=== PATIENT | female | born 1945 | race Caucasian/White ===

== ENCOUNTER 2023-01-04 08:58 | Day surgery (SDC) | payer MEDICARE, OTHER, SELFPAY ==
[2023-01-04] MEDS: TETRACAINE 0.5% OPHTH 1 DROP EYE-LEFT ×2 (09:00→09:05)
[2023-01-04] MEDS: KETOROLAC OPHTH 0.5% 1 DROP EYE-LEFT ×2 (09:00→09:05)
[2023-01-04 09:13] VITALS: BP 136/72; PULSE 74; RESP 18; TEMP 36.6; O2SAT 96
[2023-01-04 09:18] VITALS: BMI 23.3
[2023-01-04] MEDS: SODIUM CHLORIDE 0.9 % (FLUSH) 10 ML SYRINGE IVF (09:31)
--- NOTE | 2023-01-04 09:33 | SUR.PREOP ---
The eye drops brought by the patient (Ketorolac and Prednisolone) are examined and I have determined they are labeled by the patient's pharmacy for this patient as prescribed by the surgeon. The bottles are intact, recently obtained and appear to be correct.left eye volkertr
[2023-01-04] MEDS: TETRACAINE 0.5% OPHTH 2 DROP EYE-LEFT (10:07)
[2023-01-04] MEDS: BALANCED SALT IRRIG SOLN 15 ML EYE-LEFT (10:12)
--- NOTE | 2023-01-04 10:33 | W.ANESCHARGE ---
Anesthesia Charges Start Date/Time Anesthesia Start Date: 01/04/23 Anesthesia Start Time: 10:05 Stop Date/Time Anesthesia Stop Date: 01/04/23 Anesthesia Stop Time: 10:37 Summary Extremes of Age - Over 70 or under 1: MDA
[2023-01-04 10:34] VITALS: BP 127/78; PULSE 66; RESP 18; TEMP 36.2; O2SAT 95
--- NOTE | 2023-01-04 10:36 | P.ANES_ITS ---
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
--- NOTE | 2023-01-04 10:37 | W.PM.OPTPROC ---
Procedure Note Date of procedure: 01/04/23 Will [facility] bill your pro fee for this procedure?: Yes Procedure Description: SURGEON: Cydney Villavicencio MD PREOPERATIVE DIAGNOSIS: Nuclear sclerotic cataract, left eye. POSTOPERATIVE DIAGNOSIS: Nuclear sclerotic cataract, left eye. NAME OF OPERATION: Phacoemulsification of cataract with posterior chamber intraocular lens implantation in the left eye. ANESTHESIA: Topical. ESTIMATED BLOOD LOSS: Less than 2 cc. COMPLICATIONS: None. PATHOLOGY SPECIMEN: None. INDICATIONS: See consult note for details. The risks, benefits and alternatives of the procedure were explained to the patient, who elected to proceed and signed informed consent to do so. PROCEDURE: The patient was brought to the pre-holding area where the left eye was identified as the operative eye. I placed my initials above this eye. The patient received eye drops consisting of 0.5% tetracaine, 1% tropicamide, 10% phenylephrine, and 0.5% ketorolac. The patient was then brought to the operating room where the left eye was again identified as the operative eye. The eye was prepped with Betadine and draped in the usual sterile ophthalmic fashion. A #15 super-sharp blade was used to create a paracentesis site. 1% non-preserved intracameral lidocaine was injected into the anterior chamber. Endocoat was injected into the anterior chamber. A 2.4 mm keratome was used to create a three-plane self-sealing incision 1 mm anterior to the temporal limbus. A cystotome was used to create an anterior capsular leaflet. The Utrata forceps were used to extend this to form a continuous curvilinear capsulorrhexis. Hydrodissection was performed. The cataract was removed with phacoemulsification using the [id number] technique. The irrigation and aspiration tip was used to remove the remaining cortex. Healon was injected into the capsular bag. An DAPHNE ZCB00 intraocular lens of 15.0 diopters was injected into the capsular bag. The irrigation and aspiration tip was used to remove the remaining viscoelastic. Balanced salt solution on a cannula was used to hydrate the wound, and the wound was found to be watertight. The pupil was noted to be round. DISPOSITION: The patient was taken to the recovery room and discharged to home in stable condition. The patient was instructed to call me or go to the emergency department with any sudden change, including dramatic loss of vision, severe pain in the eye or eyebrow region, nausea, or vomiting. The patient will follow up in the clinic tomorrow morning.
== END 2023-01-04 11:01 | disposition home or self-care (01) ==
LOC: OR 08:59
PROVIDERS: PCP Internal Medicine; Visit Provider Ophthalmology
PROC: (CPT 66984; principal; 2023-01-04 09:45)
DX: H25.12 Age-related nuclear cataract, left eye (principal)
CPT/HCPCS: 66984; 00142; 99100; A9270; J2250; J3010; V2632

== ENCOUNTER 2023-01-18 09:13 | Day surgery (SDC) | payer MEDICARE, OTHER, SELFPAY ==
[2023-01-18 09:54] VITALS: BMI 23.3
[2023-01-18] MEDS: TETRACAINE 0.5% OPHTH 1 DROP EYE-RIGHT ×2 (09:56→10:05)
[2023-01-18] MEDS: KETOROLAC OPHTH 0.5% 1 DROP EYE-RIGHT ×2 (09:56→10:05)
[2023-01-18 09:58] VITALS: BP 150/86; PULSE 59; RESP 16; TEMP 36.4; O2SAT 97
[2023-01-18] MEDS: SODIUM CHLORIDE 0.9 % (FLUSH) 10 ML SYRINGE IVF (10:10)
--- NOTE | 2023-01-18 10:13 | SUR.PREOP ---
The eye drops brought by the patient (Ketorolac and Prednisolone) are examined and I have determined they are labeled by the patient's pharmacy for this patient as prescribed by the surgeon. The bottles are intact, recently obtained and appear to be correct.
--- NOTE | 2023-01-18 10:51 | W.ANESCHARGE ---
Anesthesia Charges Start Date/Time Anesthesia Start Date: 01/18/23 Anesthesia Start Time: 10:56 Stop Date/Time Anesthesia Stop Date: 01/18/23 Anesthesia Stop Time: 11:33 Summary Extremes of Age - Over 70 or under 1: MDA
--- NOTE | 2023-01-18 10:59 | P.ANES_ITS ---
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
[2023-01-18] MEDS: TETRACAINE 0.5% OPHTH 2 DROP EYE-RIGHT (11:00)
[2023-01-18] MEDS: BALANCED SALT IRRIG SOLN 15 ML EYE-RIGHT (11:04)
--- NOTE | 2023-01-18 11:26 | W.PM.OPTPROC ---
Procedure Note Date of procedure: 01/18/23 Will [facility] bill your pro fee for this procedure?: Yes Procedure Description: SURGEON: Cydney Villavicencio MD PREOPERATIVE DIAGNOSIS: Nuclear sclerotic cataract, right eye. POSTOPERATIVE DIAGNOSIS: Nuclear sclerotic cataract, right eye. NAME OF OPERATION: Phacoemulsification of cataract with posterior chamber intraocular lens implantation in the right eye. ANESTHESIA: Topical. ESTIMATED BLOOD LOSS: Less than 2 cc. COMPLICATIONS: None. PATHOLOGY SPECIMEN: None. INDICATIONS: See consult note for details. The risks, benefits and alternatives of the procedure were explained to the patient, who elected to proceed and signed informed consent to do so. PROCEDURE: The patient was brought to the pre-holding area where the right eye was identified as the operative eye. I placed my initials above this eye. The patient received eye drops consisting of 0.5% tetracaine, 1% tropicamide, 10% phenylephrine, and 0.5% ketorolac. The patient was then brought to the operating room where the right eye was again identified as the operative eye. The eye was prepped with Betadine and draped in the usual sterile ophthalmic fashion. A #15 super-sharp blade was used to create a paracentesis site. 1% non-preserved intracameral lidocaine was injected into the anterior chamber. Endocoat was injected into the anterior chamber. A 2.4 mm keratome was used to create a three-plane self-sealing incision 1 mm anterior to the temporal limbus. A cystotome was used to create an anterior capsular leaflet. The Utrata forceps were used to extend this to form a continuous curvilinear capsulorrhexis. Hydrodissection was performed. The cataract was removed with phacoemulsification using the [id number] technique. The irrigation and aspiration tip was used to remove the remaining cortex. Healon was injected into the capsular bag. An DAPHNE ZCB00 intraocular lens of 14.5 diopters was injected into the capsular bag. The irrigation and aspiration tip was used to remove the remaining viscoelastic. Balanced salt solution on a cannula was used to hydrate the wound, and the wound was found to be watertight. The pupil was noted to be round. DISPOSITION: The patient was taken to the recovery room and discharged to home in stable condition. The patient was instructed to call me or go to the emergency department with any sudden change, including dramatic loss of vision, severe pain in the eye or eyebrow region, nausea, or vomiting. The patient will follow up in the clinic tomorrow morning.
[2023-01-18 11:28] VITALS: BP 129/69; PULSE 59; RESP 16; TEMP 36.7; O2SAT 98
== END 2023-01-18 11:54 | disposition home or self-care (01) ==
LOC: OR 09:15
PROVIDERS: PCP Internal Medicine; Visit Provider Ophthalmology
PROC: (CPT 66984; principal; 2023-01-18 09:45)
DX: H25.11 Age-related nuclear cataract, right eye (principal)
CPT/HCPCS: 66984; 00142; 99100; A9270; J2250; J3010; V2632

== ENCOUNTER 2023-12-28 15:56 | Emergency (ER) | payer MEDICARE, OTHER, SELFPAY ==
[2023-12-28 16:03] VITALS: BP 169/65; PULSE 69; RESP 18; TEMP 36.6; O2SAT 98; BMI 20.7
--- NOTE | 2023-12-28 16:28 | CRLHL7_ITS ---
For Patients: As a result of the Century Cures Act, medical imaging exams and procedure reports are released immediately into your electronic medical record. You may view this report before your referring provider. If you have questions, please contact your health care provider. TECHNIQUE: Multiplanar CT examination of the head was performed without the use of intravenous contrast. INDICATION: Headache. COMPARISON: None. FINDINGS: No loss of berry-white differentiation to suggest recent territorial infarct. No intracranial hemorrhage, abnormal extra-axial fluid collection, hydrocephalus or midline shift. The ventricles and cerebral sulci are prominent caliber common compatible with mild generalized parenchymal volume loss. There is ill-defined hypoattenuation of the periventricular white matter diffusely, nonspecific but consistent with chronic microvascular ischemic changes. There are atherosclerotic calcifications of the intracranial ICA segments bilaterally. The basal cisterns are patent. The paranasal sinuses and mastoid air cells remain clear. Status post bilateral lens removal. The orbits and calvarium are unremarkable. The cerebellar tonsils are normal position. IMPRESSION: 1. No acute intracranial findings. 2. Mild generalized parenchymal volume loss with chronic microvascular ischemic changes. Please note that all CT scans at this facility use dose modulation, iterative reconstruction, and/or weight-based dosing when appropriate to reduce radiation dose to as low as reasonably achievable. Dictated by Marty Navarrete MD @ 12/28/2023 5:09:32 PM (Electronically Signed)
[2023-12-28] MEDS: LACTATED RINGERS 1000 ML 1,000 ML IV (17:07)
[2023-12-28 17:08] LABS: Basophils Absolute Auto 0.03 K/uL (0.00-0.30); Basophils Percent Auto 0.4 % (0.0-3.0); Eosinophils Absolute Auto 0.06 K/uL (0.00-0.50); Eosinophils Percent Auto 0.8 % (0.0-7.0); Hematocrit 40.8 % (33.0-51.0); Hemoglobin* 13.4 gm/dL (12.0-16.0); Immature Granulocytes Abs Auto 0.03 K/uL (0.00-0.30); Immature Granulocytes Pct Auto 0.4 %; Lymphocytes Percent Auto 13.2 % (20-44); Mean Corpuscular HGB Conc 33 gm/dL (32-36); Mean Corpuscular Hemoglobin 30 pg (26-34); Mean Corpuscular Volume 91 fL (80-100); Monocytes Percent Auto 10.2 % (0.0-11.0); Platelet Count* 206 K/uL (140-440); RDW Coefficient of Variation % 12.5 % (11.5-15.5); Red Blood Count 4.48 m/uL (4.00-5.20); Slide Review Reflex No; White Blood Count* 7.36 K/uL (4.50-11.00)
[2023-12-28] MEDS: ONDANSETRON 2 MG/ML inj 4 MG IVP (17:08)
[2023-12-28] MEDS: diphenhydrAMINE 50 MG/ML inj 25 MG IVP (17:08)
--- NOTE | 2023-12-28 17:09 | ED.HA ---
HPI - Headache General Date Seen: 12/28/23 Chief Complaint: Headache/Migraine Stated Complaint: migraine Time Seen by Provider: 12/28/23 16:15 Source: patient Mode of arrival: ambulatory Limitations: no limitations History of Present Illness HPI Narrative: Patient is a 78-year-old female presenting to the emergency department for a headache. She states her headache started suddenly 5 days ago and she states was very severe for next few days. Since then she states the headache comes and goes and now describes it more of a bad headache. Starts in her occipital region she states radiates to the top of her head. Symptoms are not improving with home medications so she went to her clinic today and was sent to the emergency department for evaluation due to her symptoms. She cannot say if she can describe it as a thunderclap headache but again states it started abruptly. Does have a history of a subdural hematoma. She now states she is having occasional nausea but is not currently feeling nauseated. She is also having muscle cramps and her bilateral thighs. Does have history of Parkinson's disease that she says has been well controlled. States she is moving slower than normal due to the muscle cramping in her legs and she does feel slightly off balance. Denies chest pain, shortness of breath, vision changes, numbness, weakness, abdominal pain, diarrhea, constipation. Related Data Home Medications ?Medication ?Instructions ?Recorded ?Confirmed sennosides 8.6 mg tablet (Natural 17.2 mg PO QDAY 10/20/22 12/28/23 Senna Laxative) calcium [calcium citrate] 1 tab PO DAILY 12/22/22 12/28/23 ibuprofen 200 mg tablet 200 mg PO TID PRN 12/22/22 12/28/23 Previous Rx's ?Medication ?Instructions ?Recorded carbidopa 25 mg-levodopa 100 mg 1 tab PO TID #180 tabs 11/10/22 tablet alendronate 70 mg tablet 70 mg PO QWEEK #12 tabs 10/24/23 trazodone 50 mg tablet 75 mg (1.5 x 50 mg) PO QHS #135 10/24/23 tabs venlafaxine 150 mg 150 mg PO QDAY #90 caps 10/24/23 capsule,extended release 24 hr Allergies Allergy/AdvReac Type Severity Reaction Status Date / Time No Known Allergies Allergy Verified 12/28/23 14:55 Review of Systems Status of ROS: Reports: 10 or more systems reviewed and unremarkable except as noted in History and below [facility] Medical History History of traumatic brain injury ?Z87.820 - Personal history of traumatic brain injury (ICD-10) History of traumatic subdural hematoma ?Z87.828 - Personal history of other (healed) physical injury and trauma (ICD-10) Surgical History History of cataract surgery ?Z98.49 - Cataract extraction status, unspecified eye (ICD-10) Family History Mother Colon cancer, Onset Age: 70 Social History What is your current living situation?: I presently have a place to live Problems where you live: no known problems In the past 12 months, utilities in danger of being shut off: no In past 12 months, lack of transportation kept you from medical appts, meetings, work, or getting things needed for daily living: no In the past 12 mos, have been you worried that your food would run out before you had money to buy more?: never true In the past 12 mos, the food you bought just didn't last and you didn't have money to buy more?: never true Smoking Status: Never smoker Do you use any of these nicotine containing products: None How often do you have a drink containing alcohol: monthly or less Alcohol type: wine How many standard drinks containing alcohol do you have on a typical day: 1 or 2 How often do you have six or more drinks on one occasion: Never AUDIT-C Alcohol total score: 1 Non-prescribed substance use: denies use Caffeine: Yes How often does anyone, including family, friends and others, physically hurt you: never How often does anyone, including family, friends and others, insult or talk down to you: rarely How often does anyone, including family, friends and others, threaten you with harm: never How often does anyone, including family, friends and others, scream or curse at you: rarely Little interest or pleasure in doing things: several days Feeling down, depressed, or hopeless: several days Are you using contraception or practicing any form of control: No Exam Narrative: Exam Narrative: Const: Well-nourished, Well-developed, in mild distress Eyes: PERRL, no conjunctival injection, and symmetrical lids HENT: Atraumatic external nose and ears. Moist mucous membranes. Neck: Symmetric, trachea midline, No thyromegaly. CVS: RRR, No murmurs or gallops. Peripheral pulses 2+ and equal in all extremities RESP: Unlabored respiratory effort. Clear to auscultation bilaterally. GI: Nontender/Nondistended, No rebound or guarding. MSK:Extremities w/o deformity, Normal Active ROM Skin: Warm, Dry. No rashes or lesions. Neuro: Normal Muscle tone, Cranial nerves 2-12 grossly intact, normal [id number], normal [id number], normal gait, normal strength 5/5 upper lower extremities bilaterally, normal sensation upper and lower extremities bilaterally, normal rapid alternating movements. Psych: Awake, Alert, & Oriented x3. Appropriate mood and affect. Const: Vital Signs, click to edit/add: Vital Signs - 24 hr 12/28/23 16:03 12/28/23 17:14 12/28/23 17:15 Temperature 97.9 F Pulse Rate 60 59 L Pulse Rate [Right Pulse Oximeter] 69 Respiratory Rate 18 Blood Pressure Blood Pressure [Ri ght Upper Arm] 169/65 H Pulse Oximetry 98 99 96 Oxygen Delivery Me thod Room Air 12/28/23 19:33 12/28/23 19:34 12/28/23 19:45 Temperature Pulse Rate 67 68 62 Pulse Rate [Right Pulse Oximeter] Respiratory Rate Blood Pressure 171/81 H Blood Pressure [Ri ght Upper Arm] Pulse Oximetry 97 98 96 Oxygen Delivery Me thod Course Vital Signs Vital signs: Initial Vital Signs Temperature 97.9 F 12/28/23 16:03 Temperature Source Temporal Artery Scan 12/28/23 16:03 Pulse Rate 69 12/28/23 16:03 Respiratory Rate 18 12/28/23 16:03 Blood Pressure 169/65 H 12/28/23 16:03 Blood Pressure Mean 99 12/28/23 16:03 Blood Pressure Position Sitting 12/28/23 16:03 Pulse Oximetry 98 12/28/23 16:03 Oxygen Delivery Method Room Air 12/28/23 16:03 Vital Signs Temperature 97.9 F 12/28/23 16:03 Pulse Rate 69 12/28/23 16:03 Respiratory Rate 18 12/28/23 16:03 Blood Pressure 169/65 H 12/28/23 16:03 Pulse Oximetry 98 12/28/23 16:03 Oxygen Delivery Method Room Air 12/28/23 16:03 Temperature 97.9 F 12/28/23 16:03 Pulse Rate 62 12/28/23 19:45 Respiratory Rate 18 12/28/23 16:03 Blood Pressure 171/81 H 12/28/23 19:33 Pulse Oximetry 96 12/28/23 19:45 Oxygen Delivery Method Room Air 12/28/23 16:03 Medications Administered Medications: Discontinued Medications Generic Name Dose Route Start Last Admin Trade Name Freq PRN Reason Stop Dose Admin Diphenhydramine HCl 25 mg 12/28/23 16:28 12/28/23 17:08 Diphenhydramine 50 Mg/Ml Inj IVP 12/28/23 16:29 25 mg ONCE ONE Administration Lactated Ringer's 1,000 mls @ 1,000 mls/hr 12/28/23 16:28 12/28/23 18:45 Lactated Ringers 1000 Ml IV 12/28/23 17:27 Infused .Q1H ONE Infusion Ketorolac Tromethamine 15 mg 12/28/23 19:49 12/28/23 20:00 Ketorolac 15 Mg/Ml Inj IVP 12/28/23 19:50 15 mg ONCE ONE Administration Ondansetron HCl 4 mg 12/28/23 16:28 12/28/23 17:08 Ondansetron 2 Mg/Ml Inj IVP 12/28/23 16:29 4 mg ONCE ONE Administration MDM - Headache MDM Narrative Medical decision making narrative: Patient is a 78-year-old female presenting to emergency department for headache and muscle cramps. I will give her 1 L of fluids but due to her history of Parkinson's I am hesitant to give her the Reglan as far the migraine cocktail. Will give her Zofran. I am waiting to give her Toradol at this time as a do concerned some arachnoid hemorrhage. Based on her description subarachnoid hemorrhage is on the differential and concerned how long ago it has been CT scan cannot definitively rule out but this will be ordered since she has also had subdural hematomas in the past. Will also order a CBC, CMP, COVID/flu/RSV. Head CT reviewed by myself the radiologist shows no acute concerning abnormalities. This still does not rule out a subarachnoid but can rule of the subdural. Spoke to the patient about the need for a lumbar puncture and she agreed to lumbar puncture. This was done and CSF fluid was sent. On also do a PCR for HSV 1 and 2 concerned she did have some neck pain associated. Seems meningitis is relatively low but will send as we are sending CSF fluid any way. No signs of a xanthochroia on CSF fluid analysis. They are also few red blood cells. Subarachnoid hemorrhage seems unlikely in patient's headache states she improved after the Toradol. I am still waiting for glucose and protein but this may take a while inpatient wants to leave now. She looks well and while she does have elevated white blood cell count in this is a sign of meningitis. It could be viral in nature as she looks otherwise well which can be discharged with close follow-up. the patient will be discharged at this time and I will call her with the results of her other labs. Glucose returned slightly low and protein returned elevated. I called the patient back immediately her and informed her that concerned she has meningitis. Insert heart is definitively say this is viral or bacterial. Considering how well she is appearing this is most likely a viral meningitis by informed her that I recommend she comes back to the emergency department soon as she can. As the low glucose does make concerning for bacterial. She states she is going to take care of her dog and will probably come back in the morning. I explained her the risk of meningitis she states she understands. Lab Data Labs: Lab Results 12/28/23 12/28/23 12/28/23 Range/Units 16:45 16:50 16:50 WBC 7.36 (4.50-11.00) K/uL RBC 4.48 (4.00-5.20) m/uL Hgb 13.4 (12.0-16.0) gm/dL Hct 40.8 (33.0-51.0) % MCV 91 (80-100) fL MCH 30 (26-34) pg MCHC 33 (32-36) gm/dL RDW Coeff of Michaelle 12.5 (11.5-15.5) % Plt Count 206 (140-440) K/uL Neut % (Auto) 75.0 H (42.0-72.0) % Lymph % (Auto) 13.2 L (20-44) % [place] % (Auto) 10.2 (0.0-11.0) % Eos % (Auto) 0.8 (0.0-7.0) % Baso % (Auto) 0.4 (0.0-3.0) % Neut # (Auto) 5.50 (1.7-7.0) K/uL Lymph # (Auto) 1.00 (0.90-2.90) K/uL [place] # (Auto) 0.80 (0.00-0.90) K/UL Eos # (Auto) 0.06 (0.00-0.50) K/uL Baso # (Auto) 0.03 (0.00-0.30) K/uL Abs Immat Gran (auto) 0.03 (0.00-0.30) K/uL Imm/Tot Granulo (auto) 0.4 % Sodium 135 (135-149) mmol/L Potassium 4.0 (3.6-5.1) mmol/L Chloride 101 (96-114) mmol/L Carbon Dioxide 26 (20-32) mmol/L Anion Gap 8 (7-15) mEq/L BUN 21 (7-30) mg/dL Creatinine 0.9 (0.5-1.5) mg/dL Estimated Creat Clear 43.82 Estimated GFR 65 ml/min Glucose 85 (60-115) mg/dL Calcium 9.5 (8.4-10.6) mg/dL Magnesium 2.2 Cancelled (1.5-2.6) mg/dL CSF Volume (0-6) mL CSF Appearance (Clear) CSF Color (Colorless) CSF WBC Cells/uL CSF RBC Cells/uL CSF Mononuclear Cells % CSF Polynuclear WBCs % CSF Glucose (40-70) Mg/dL CSF Total Protein (15-45) Mg/dL SARS-CoV-2 (PCR) Negative SARS-CoV-2 (Negative) Influenza Type A (PCR) Negative PCR FLU A (Negative) Influenza Type B (PCR) Negative PCR FLU B (Negative) RSV (PCR) Negative PCR RSV (Negative) 12/28/23 Range/Units 18:45 WBC (4.50-11.00) K/uL RBC (4.00-5.20) m/uL Hgb (12.0-16.0) gm/dL Hct (33.0-51.0) % MCV (80-100) fL MCH (26-34) pg MCHC (32-36) gm/dL RDW Coeff of Michaelle (11.5-15.5) % Plt Count (140-440) K/uL Neut % (Auto) (42.0-72.0) % Lymph % (Auto) (20-44) % [place] % (Auto) (0.0-11.0) % Eos % (Auto) (0.0-7.0) % Baso % (Auto) (0.0-3.0) % Neut # (Auto) (1.7-7.0) K/uL Lymph # (Auto) (0.90-2.90) K/uL [place] # (Auto) (0.00-0.90) K/UL Eos # (Auto) (0.00-0.50) K/uL Baso # (Auto) (0.00-0.30) K/uL Abs Immat Gran (auto) (0.00-0.30) K/uL Imm/Tot Granulo (auto) % Sodium (135-149) mmol/L Potassium (3.6-5.1) mmol/L Chloride (96-114) mmol/L Carbon Dioxide (20-32) mmol/L Anion Gap (7-15) mEq/L BUN (7-30) mg/dL Creatinine (0.5-1.5) mg/dL Estimated Creat Clear Estimated GFR ml/min Glucose (60-115) mg/dL Calcium (8.4-10.6) mg/dL Magnesium (1.5-2.6) mg/dL CSF Volume 8.5 H (0-6) mL CSF Appearance Clear (Clear) CSF Color Colorless (Colorless) CSF WBC 285 Cells/uL CSF RBC 1 Cells/uL CSF Mononuclear Cells 78 % CSF Polynuclear WBCs 22 % CSF Glucose 32 L (40-70) Mg/dL CSF Total Protein 104 H (15-45) Mg/dL SARS-CoV-2 (PCR) (Negative) Influenza Type A (PCR) (Negative) Influenza Type B (PCR) (Negative) RSV (PCR) (Negative) Imaging Data CT scan - head: Attestation: I have reviewed the pertinent imaging results. Radiologist's impression: 1. No acute intracranial findings. 2. Mild generalized parenchymal volume loss with chronic microvascular ischemic changes. Please note that all CT scans at this facility use dose modulation, iterative reconstruction, and/or weight-based dosing when appropriate to reduce radiation dose to as low as reasonably achievable. Dictated by Marty Navarrete MD @ 12/28/2023 5:09:32 PM Discharge Plan Discharge Clinical Impression: Meningitis Headache Qualifiers: Headache type: unspecified Headache chronicity pattern: acute headache Intractability: not intractable Qualified Code(s): R51.9 - Headache, unspecified Patient Disposition: Home, Self-Care Condition: Improved Instructions: Acute Headache (DC) Additional Instructions: Continue to take Tylenol and ibuprofen for pain and make sure you stay well hydrated. Return to emergency department for new or worsening symptoms. Prescriptions: No Action sennosides [Natural Senna Laxative] 8.6 mg tablet 17.2 mg PO QDAY ibuprofen 200 mg tablet 200 mg PO TID PRN calcium [calcium citrate] 1 tab PO DAILY venlafaxine 150 mg capsule,extended release 24hr 150 mg PO QDAY Qty: 90 3RF trazodone 50 mg tablet 75 mg PO QHS Qty: 135 3RF alendronate 70 mg tablet 70 mg PO QWEEK Qty: 12 3RF carbidopa-levodopa 25-100 mg tablet 1 tab PO TID Qty: 180 0RF Follow Up/Referrals: Carolina Aponte MD [Primary Care Provider] - Stand Alone Forms: [facility] Info Instructions Procedures Lumbar Puncture Written consent by: patient Verification/time out: correct patient, correct site, correct procedure and time out performed Name of person performing procedure: Chris Lee Reason for procedure: diagnostic Patient Position: sitting Skin preparation: povidone-iodine 1% Local Anesthetic: lidocaine 1% Amount of anesthesia used (mL): 5 Spinal Needle Gauge: 20G Interspace Used: L4-L5 Number of attempts: 1 Fluid Initially Obtained: clear Estimated blood loss (if any): none Complications: none Conclusion: patient tolerated procedure
[2023-12-28 17:14] VITALS: PULSE 60; O2SAT 99
[2023-12-28 17:15] VITALS: PULSE 59; O2SAT 96
[2023-12-28 17:23] LABS: Chloride* 101 mmol/L (96-114); Sodium* 135 mmol/L (135-149)
[2023-12-28 17:26] LABS: Creatinine* 0.9 mg/dL (0.5-1.5); Est. Creatinine Clearance* 43.82; Estimated Glomerular Filt Rate 65 ml/min
[2023-12-28 17:27] LABS: Anion Gap 8 mEq/L (7-15); Blood Urea Nitrogen* 21 mg/dL (7-30); Calcium* 9.5 mg/dL (8.4-10.6); Carbon Dioxide* 26 mmol/L (20-32); Glucose* 85 mg/dL (60-115); Magnesium* 2.2 mg/dL (1.5-2.6)
[2023-12-28 17:36] LABS: PCR FLU A Negative PCR FLU A (Negative); PCR FLU B Negative PCR FLU B (Negative); PCR RSV Negative PCR RSV (Negative); SARS PCR* Negative SARS-CoV-2 (Negative)
[2023-12-28 19:33] VITALS: BP 171/81; PULSE 67; O2SAT 97
[2023-12-28 19:34] VITALS: PULSE 68; O2SAT 98
[2023-12-28 19:41] LABS: CSF Mononuclear Cells 78 %; CSF Polynuclear Cells 22 %; WBC, CSF 285 Cells/uL
[2023-12-28 19:45] VITALS: PULSE 62; O2SAT 96
[2023-12-28 19:46] LABS: RBC, CSF 1 Cells/uL
[2023-12-28 19:47] LABS: Appearance CSF Clear (Clear); Color CSF Colorless (Colorless); Total Volume 8.5 mL (0-6)
[2023-12-28] MEDS: KETOROLAC 15 MG/ML inj IVP (20:00)
[2023-12-28 21:01] LABS: Glucose, CSF* 32 Mg/dL (40-70); Total Protein, CSF 104 Mg/dL (15-45)
[2024-01-01 06:53] LABS: HSV 1 Subtype by PCR Not Detected; HSV 2 Subtype by PCR Not Detected; Herpes Simplex Subtype Source CSF
== END 2023-12-28 21:00 | disposition home or self-care (01) ==
PROVIDERS: Emergency Provider Student in an Organized Health Care Education/Training Program; PCP Internal Medicine
DX: R51.9 Headache, unspecified (principal)
CPT/HCPCS: 62270; 36415; 70450; 80048; 82945; 83735; 84157; 85025; 87070; 87252; 87529; 87631; 89051; 96374; 96375; 99283; 99284; J1200; J1885; J2405; J7120

== ENCOUNTER 2023-12-29 09:25 | Emergency (ER) | payer MEDICARE, OTHER, SELFPAY ==
[2023-12-29 09:38] VITALS: BP 143/93; PULSE 72; RESP 18; TEMP 35.9; O2SAT 98; BMI 20.7
[2023-12-29 10:00] VITALS: BP 148/96; PULSE 74; RESP 16; O2SAT 97
[2023-12-29 10:19] LABS: Basophils Absolute Auto 0.02 K/uL (0.00-0.30); Basophils Percent Auto 0.3 % (0.0-3.0); Eosinophils Absolute Auto 0.16 K/uL (0.00-0.50); Eosinophils Percent Auto 2.6 % (0.0-7.0); Hematocrit 40.1 % (33.0-51.0); Hemoglobin* 12.9 gm/dL (12.0-16.0); Immature Granulocytes Abs Auto 0.02 K/uL (0.00-0.30); Immature Granulocytes Pct Auto 0.3 %; Lymphocytes Percent Auto 10.4 % (20-44); Mean Corpuscular HGB Conc 32 gm/dL (32-36); Mean Corpuscular Hemoglobin 30 pg (26-34); Mean Corpuscular Volume 92 fL (80-100); Monocytes Percent Auto 10.7 % (0.0-11.0); Neutrophils Percent Auto 75.7 % (42.0-72.0); Platelet Count* 186 K/uL (140-440); RDW Coefficient of Variation % 12.4 % (11.5-15.5); Red Blood Count 4.37 m/uL (4.00-5.20); White Blood Count* 6.05 K/uL (4.50-11.00)
--- NOTE | 2023-12-29 10:31 | ED.FALL ---
HPI - Fall General Chief Complaint: Fall/Minor Trauma Stated Complaint: fall in parking lot Time Seen by Provider: 12/29/23 09:31 History of Present Illness HPI Narrative: This 78-year-old female was seen yesterday in the emergency department because of a headache for the past fiber [address]. [address] scan and lumbar puncture done yesterday and is instructed to return as the lumbar puncture showed that glucose was a bit low in protein was elevated. The patient was returning here and actually fell in the parking lot. She would did not have loss of consciousness and was able to get up and ambulate but had a laceration on the acceptable region of her head that was bleeding significantly. She is not on any anticoagulants. She states actually that her headache is better. She has not had any fevers. Related Data Home Medications ?Medication ?Instructions ?Recorded ?Confirmed sennosides 8.6 mg tablet (Natural 17.2 mg PO QDAY 10/20/22 12/28/23 Senna Laxative) calcium [calcium citrate] 1 tab PO DAILY 12/22/22 12/28/23 ibuprofen 200 mg tablet 200 mg PO TID PRN 12/22/22 12/28/23 Previous Rx's ?Medication ?Instructions ?Recorded carbidopa 25 mg-levodopa 100 mg 1 tab PO TID #180 tabs 11/10/22 tablet alendronate 70 mg tablet 70 mg PO QWEEK #12 tabs 10/24/23 trazodone 50 mg tablet 75 mg (1.5 x 50 mg) PO QHS #135 10/24/23 tabs venlafaxine 150 mg 150 mg PO QDAY #90 caps 10/24/23 capsule,extended release 24 hr Allergies Allergy/AdvReac Type Severity Reaction Status Date / Time No Known Allergies Allergy Verified 12/29/23 09:38 Review of Systems Status of ROS: Reports: 10 or more systems reviewed and unremarkable except as noted in History and below Narrative: Constitutional: No fevers, no weight gain or loss. Eyes: No discharge. No vision changes. HENT: No congestion, no sore throat, no ear pain. Cardiovascular: No chest pain, no palpitations. Respiratory: No shortness of breath, no wheezes, no cough. Gastrointestinal: No abdominal pain, no vomiting, no diarrhea. Genitourinary: No dysuria, no hematuria. Musculoskeletal: Normal range of motion. Skin: No rashes, no pruritis. Neurological: No dizziness, weakness, sensory change, speech change. Endo/Heme/Allergies: No bruising or bleeding. No polydipsia. Pysch: no suicidality, no anxiety, no insomnia. All other systems reviewed and are negative. [facility] Medical History History of traumatic brain injury ?Z87.820 - Personal history of traumatic brain injury (ICD-10) History of traumatic subdural hematoma ?Z87.828 - Personal history of other (healed) physical injury and trauma (ICD-10) Surgical History History of cataract surgery ?Z98.49 - Cataract extraction status, unspecified eye (ICD-10) Family History Mother Colon cancer, Onset Age: 70 Social History What is your current living situation?: I presently have a place to live Problems where you live: no known problems In the past 12 months, utilities in danger of being shut off: no In past 12 months, lack of transportation kept you from medical appts, meetings, work, or getting things needed for daily living: no In the past 12 mos, have been you worried that your food would run out before you had money to buy more?: never true In the past 12 mos, the food you bought just didn't last and you didn't have money to buy more?: never true Smoking Status: Never smoker Do you use any of these nicotine containing products: None How often do you have a drink containing alcohol: monthly or less Alcohol type: wine How many standard drinks containing alcohol do you have on a typical day: 1 or 2 How often do you have six or more drinks on one occasion: Never AUDIT-C Alcohol total score: 1 Non-prescribed substance use: denies use Caffeine: Yes How often does anyone, including family, friends and others, physically hurt you: never How often does anyone, including family, friends and others, insult or talk down to you: rarely How often does anyone, including family, friends and others, threaten you with harm: never How often does anyone, including family, friends and others, scream or curse at you: rarely Little interest or pleasure in doing things: several days Feeling down, depressed, or hopeless: several days Are you using contraception or practicing any form of control: No Exam Narrative: Exam Narrative: Constitutional: Well-developed, well-nourished, no acute distress. HEENT: Laceration in the occipital region of her head. Neck: Normal range of motion. Nontender. Supple. Heart: Regular. No murmurs. Normal rate. Intact distal pulses. Lungs: Clear to auscultation. No chest discomfort. No wheezes, rhonchi, or rales. Abdomen: Normal bowel sounds. Nontender. No rebound tenderness. Genitalia: Deferred. Back: No midline tenderness. Normal range of motion. Extremities: Normal range of motion. No injury. Skin: Intact. No rash. Warm. No erythema or pallor. Neurologic: No altered sensation. No weakness. Alert and oriented. Psychiatric: No suicidality. No anxiety or depression. No insomnia. Nursing notes and vitals signs are reviewed. Const: Vital Signs, click to edit/add: Vital Signs - 24 hr 12/29/23 09:38 Temperature 96.7 F L Pulse Rate [Pulse Oximeter] 72 Respiratory Rate 18 Blood Pressure [Ri ght Upper Arm] 143/93 H Pulse Oximetry 98 Oxygen Delivery Me thod Room Air Course Vital Signs Vital signs: Initial Vital Signs Temperature 96.7 F L 12/29/23 09:38 Temperature Source Temporal Artery Scan 12/29/23 09:38 Pulse Rate 72 12/29/23 09:38 Pulse Rhythm Regular 12/29/23 09:38 Respiratory Rate 18 12/29/23 09:38 Blood Pressure 143/93 H 12/29/23 09:38 Blood Pressure Mean 109 H 12/29/23 09:38 Blood Pressure Position Sitting 12/29/23 09:38 Pulse Oximetry 98 12/29/23 09:38 Oxygen Delivery Method Room Air 12/29/23 09:38 Vital Signs Temperature 96.7 F L 12/29/23 09:38 Pulse Rate 72 12/29/23 09:38 Respiratory Rate 18 12/29/23 09:38 Blood Pressure 143/93 H 12/29/23 09:38 Pulse Oximetry 98 12/29/23 09:38 Oxygen Delivery Method Room Air 12/29/23 09:38 Temperature 96.7 F L 12/29/23 09:38 Pulse Rate 72 12/29/23 09:38 Respiratory Rate 18 12/29/23 09:38 Blood Pressure 143/93 H 12/29/23 09:38 Pulse Oximetry 98 12/29/23 09:38 Oxygen Delivery Method Room Air 12/29/23 09:38 MDM - Fall MDM Narrative Medical decision making narrative: This patient comes in for recheck of her headache which she states is significantly better. On the way and she fell and has a laceration on the occipital portion of her head. This measures about 3 cm in length. Direct pressure was applied to stop the bleeding. After injection with 1% lidocaine with epinephrine I placed 4 alma to approximate the wound edges. The patient is not complaining of any headache and has no neurologic deficits. She did not have loss of consciousness. I did check a complete blood count and note that her white count remains in normal range. There is no indication to repeat CT imaging of her head as this was done yesterday. She did not have loss of consciousness today and is not complaining of any symptoms. She is okay to be discharged home. Instructions were given regarding wound care. Lab Data Labs: Lab Results 12/29/23 Range/Units 10:09 WBC 6.05 (4.50-11.00) K/uL RBC 4.37 (4.00-5.20) m/uL Hgb 12.9 (12.0-16.0) gm/dL Hct 40.1 (33.0-51.0) % MCV 92 (80-100) fL MCH 30 (26-34) pg MCHC 32 (32-36) gm/dL RDW Coeff of Michaelle 12.4 (11.5-15.5) % Plt Count 186 (140-440) K/uL Neut % (Auto) 75.7 H (42.0-72.0) % Lymph % (Auto) 10.4 L (20-44) % [place] % (Auto) 10.7 (0.0-11.0) % Eos % (Auto) 2.6 (0.0-7.0) % Baso % (Auto) 0.3 (0.0-3.0) % Neut # (Auto) 4.60 (1.7-7.0) K/uL Lymph # (Auto) 0.60 L (0.90-2.90) K/uL [place] # (Auto) 0.60 (0.00-0.90) K/UL Eos # (Auto) 0.16 (0.00-0.50) K/uL Baso # (Auto) 0.02 (0.00-0.30) K/uL Abs Immat Gran (auto) 0.02 (0.00-0.30) K/uL Imm/Tot Granulo (auto) 0.3 % Discharge Plan Discharge Clinical Impression: Laceration of scalp Patient Disposition: Home, Self-Care Condition: Improved Additional Instructions: Keep wound clean and dry. Follow-up with clinic or urgent care in 5-7 days for staple removal. Return if worsening. Prescriptions: No Action sennosides [Natural Senna Laxative] 8.6 mg tablet 17.2 mg PO QDAY ibuprofen 200 mg tablet 200 mg PO TID PRN calcium [calcium citrate] 1 tab PO DAILY venlafaxine 150 mg capsule,extended release 24hr 150 mg PO QDAY Qty: 90 3RF trazodone 50 mg tablet 75 mg PO QHS Qty: 135 3RF alendronate 70 mg tablet 70 mg PO QWEEK Qty: 12 3RF carbidopa-levodopa 25-100 mg tablet 1 tab PO TID Qty: 180 0RF Follow Up/Referrals: Carolina Aponte MD [Primary Care Provider] - Stand Alone Forms: [facility] Info Instructions
[2023-12-29 11:00] VITALS: BP 156/64; PULSE 78; RESP 16; O2SAT 96
[2023-12-29 11:14] LABS: Slide Review Reflex No
[2023-12-29 11:55] VITALS: BP 143/93; PULSE 72; RESP 16; TEMP 35.9
== END 2023-12-29 11:58 | disposition home or self-care (01) ==
PROVIDERS: Emergency Provider Emergency Medicine Emergency Medical Services; PCP Internal Medicine
DX: S01.01XA Laceration without foreign body of scalp, initial encounter (principal); W18.30XA Fall on same level, unspecified, initial encounter; Y93.9 Activity, unspecified; Y92.481 Parking lot as the place of occurrence of the external cause
CPT/HCPCS: 12002; 36415; 85025; 99283; 99284

== ENCOUNTER 2024-02-07 09:05 | Outpatient (CLI) | payer MEDICARE, OTHER, SELFPAY ==
--- OUTSIDE RECORDS SUMMARY | 2024-02-07 09:08 | XMS_ITS | Clinical Summary ---
Author Organization [facility] Address [address] [place] [address] Care Team Providers Care Circulator Name Role Phone Unavailable Primary Care Provider Unavailabl e Source Comments Patient records contain information from all sites at [facility]. For routine questions regarding patient records, call [phone] during business hours, M-F 8:00 AM - 5:00 PM Central Time. Record requests for emergency care only can be directed to [phone] at any time.[facility] Allergies No known active allergies Medications Medication Sig Dispensed Refills Start Date End Date Status naproxen (NAPROSYN) 250 mg tablet Take 500 mg by mouth as needed. 02/25/2014 Active sennosides-docusate sodium (SENOKOT-S) 8.6-50 mg per tablet Take 1 tablet by mouth 2 (two) times a day. 02/26/2014 Active traZODone (DESYREL) 50 mg tablet Take 75 mg by mouth at bedtime. 3 11/14/2018 Active venlafaxine (EFFEXOR) 50 mg tablet Take 75 mg by mouth daily. Active venlafaxine XR (EFFEXOR-XR) 75 mg 24 hr capsule Take 75 mg by mouth daily. 10/21/2019 Active venlafaxine XR (EFFEXOR-XR) 150 mg 24 hr capsule Take 150 mg by mouth daily with breakfast. Active estradioL (ESTRACE) 0.1 mg/g (0.01%) vaginal cream 1 g 3 (three) times a week. 08/18/2020 Active alendronate (FOSAMAX) 70 mg tablet 10/23/2021 Active calcium carbonate (Calcium 600) 1,500 mg (600 mg calcium) tablet Take 1 tablet by mouth daily with breakfast. 12/22/2022 Active ibuprofen (ADVIL,MOTRIN) 200 mg tablet Take 200 mg by mouth as needed. 10/20/2022 Active carbidopa-levodopa (SINEMET) 25-100 mg per tablet Take 1 tablet by mouth 3 (three) times a day. 270 tablet 3 03/10/2023 Active Active Problems Problem Noted Date Diagnosed Date Parkinson's Disease Without Dyskinesia, Without Mention Of Fluctuations 03/10/2023 Parkinsonism Unspecified 01/17/2019 Depressive Disorder 02/25/2014 Overview (10/04/2016): Depression NOS Social History Tobacco Use Types Packs/Day Years Used Date Smoking Tobacco: Never Smokeless Tobacco: Never Tobacco Cessation:Counseling Given: Not Answered Nutrition Answer Date Recorded Nutrition: EVOO Fat Source Unknown 07/08 Nutrition: Servings of Fruits/Vegetables per Day Not on file 07/08/2020 Dental Answer Date Recorded Dental: Regular Dentist Unknown 07/08/19 21 Sex and Gender Information Value Date Recorded Sex Assigned at Not on file Gender Identity Not on file Sexual Orientation Not on file Last Filed Vital Signs Vital Sign Reading Time Taken Comments Blood Pressure 129/62 03/10/2023 10:55 AM CDT manual Pulse 68 03/10/2023 10:55 AM CDT Temperature - - Respiratory Rate 18 02/25/2014 9:27 PM CDT Oxygen Saturation - - Inhaled Oxygen Concentration - - Weight 65.3 kg (143 lb 15.4 oz) 023 10:55 AM CDT Height 170 cm (5' 6.93) 01/17/2019 8:45 AM CDT Body Mass Index 22.6 01/17/2019 8:45 AM CDT Plan of Treatment Upcoming Encounters Date Type Department Care Team (Late st Contact Info) Description 03/13/2024 9:45 AM CDT Office Visit Department of Neurology in [place], [place] [address], [place] [address] Rikki Person M.D. [address] [place] [address] Health Maintenance Due Date Last Done Comments Depression Monitoring (PHQ-9) 1945 Hepatitis C Screening 1945 DTaP,Tdap,and Td Vaccines (1 - Tdap) 02/07/2014 02/06/2014, 11/11/2004, 11/11/2004, Additional history exists RSV vaccine - (32-3 6 weeks) or 60+ years (1 - 1-dose 75+ series) 2020 Fall Risk Screen (Annual) 05/15/2023 COVID-19 Vaccine (7 - 2023-2 5 season) 2024 03/14/2023, 03/01/2022, 10/19/2021, Additional history exists Influenza Vaccine (#1) 2024 , 02/24/2022, 02/24/2022, Additional history exists Colonoscopy Discontinued 03/19/2007 Colorectal Cancer Screening Discontinued Pneumococcal vaccine (65+ years) Completed 09/27/19 15, 09/15/2010 Zoster Vaccines Completed 06/09/2022, 03/01/2022 CT Colonography Discontinued Cologuard Discontinued FIT Discontinued
--- OUTSIDE RECORDS SUMMARY | 2024-02-07 09:08 | XMS_ITS ---
Author Organization [facility] Address [address] [place] [address] Care Team Providers Care Retail Planning Manager Name Role Phone Unavailable Unavailable Unavailable Surgery Details Not on file Complications Check Surgery Details section. Procedure Estimated Blood Loss Check Surgery Details section. Procedure Findings Check Surgery Details section. Procedure Specimens Taken Check Surgery Details section.
--- OUTSIDE RECORDS SUMMARY | 2024-02-07 09:08 | XMS_ITS | Clinical Summary ---
Author Organization [facility] Address [place], [place] [address] Care Team Providers Care Senior Accounting Specialist Name Role Phone Carolina Aponte MD Primary Care Provider [phone] Allergies No known active allergies Medications Medication Sig Dispensed Refills Start Date End Date Status FLUoxetine (PROZAC) 20 mg capsule Take 1 capsule by mouth every morning. Patient states she alternates one tablet a day then two tablets the next day 0 01/26/2011 Active traZODone (DESYREL) 50 mg tablet Take 1 tablet by mouth at bedtime. 0 01/26/2011 Active Herbal Drugs capsule Take by mouth. Patient states she takes two herbal pain relief capsules prescribed by her chiropractor 0 01/26/2011 Active carbidopa-levodopa, 25-100 mg, (SINEMET 25-100) 25-100 mg tablet Takes one and a quarter tid 0 11/11/2015 Active Social History Tobacco Use Types Packs/Day Years Used Date Smoking Tobacco: Never Tobacco Cessation:Counseling Given: Yes Sex and Gender Information Value Date Recorded Sex Assigned at Not on file Gender Identity Not on file Sexual Orientation Not on file Obstetrics History Last Filed Vital Signs Vital Sign Reading Time Taken Comments Blood Pressure 141/60 11/11/2015 8:12 AM CDT Pulse 63 11/11/2015 8:12 AM CDT Temperature 36.8 ??C (98.2 ??F) 11/11/2015 8:12 AM CD T Respiratory Rate - - Oxygen Saturation 99% 11/11/2015 8:12 AM CDT Inhaled Oxygen Concentration - - Weight - - Height - - Body Mass Index - - Plan of Treatment Health Maintenance Due Date Last Done Comments Tdap 1956 Depression screening for age 12+ 1957 BMI (ht and wt on same day) for age 18+ 08/25/1963 Hepatitis C screening for ag e 18-79 08/25/1963 Tetanus booster 1965 Zoster (shingles) series for age 50+ (1 of 2) 08/25/1995 DEXA/DXA scan for age 65+ 2010 Pneumococcal series for age 65+ (1 of 1 - PCV) 2010 RSV vaccine for adults or (1 - 1-dose 75+ series) 2020 COVID-19 vaccine series (2023-25 season) 2024 03/01/2022, 10/19/2021, 03/30/2021, Additional history exists Influenza for age 65+ 01/14/2024 Care Teams Senior Accounting Specialist Relationship Specialty Start Date End Date Carolina Aponte MD [address] [place] [address] PCP - General Internal Medicine 11/04/15
--- OUTSIDE RECORDS SUMMARY | 2024-02-07 09:08 | XMS_ITS | Referral Summary ---
Author Organization [facility] Address [address] [place] [address] Care Team Providers Care Furniture Finisher Name Role Phone Unavailable Primary Care Provider Unavailabl e Source Comments Patient records contain information from all sites at [facility]. For routine questions regarding patient records, call [phone] during business hours, M-F 8:00 AM - 5:00 PM Central Time. Record requests for emergency care only can be directed to [phone] at any time.[facility] Allergies No known active allergies Medications Medication [...] CDT Office Visit Department of Neurology in [place], [place] [address] [place] [address] Rikki Person M.D. [address] [place] [address]
--- NOTE | 2024-02-07 09:30 | CRLHL7_ITS ---
For Patients: As a result of the Century Cures Act, medical imaging exams and procedure reports are released immediately into your electronic medical record. You may view this report before your referring provider. If you have questions, please contact your health care provider. DXA BONE MINERAL DENSITY STUDY Reason for exam: Osteoporosis. Current height (in): 67. Weight (lb): 135. Menopause age: 40. Ethnicity: White. 1. Have you had a previous hip or vertebral fracture? No. 2. Have you had any fractures during your adult life which did not result from significant trauma (e.g., auto accident)? No. 3. Did either of your parents have a hip fracture? No. 4. Do you smoke? No. 5. Have you ever taken Glucocorticoids? No. 6. Do you have rheumatoid arthritis? No. 7. Do you have secondary osteoporosis? No. 8. Do you drink 3 or more alcoholic drinks per day? No. 9. Are you being treated for osteoporosis? Yes. 10. Have you ever taken any of the following medications: Actonel, Evista, Fosamax, Miacalcin, Reclast, Boniva, Forteo, HRT (i.e. estrogen/hormone therapy), Protelos, Prolia, Vitamin D, Calcium, other ??? please specify. ANSWER: No. 11. Do you have any of the following medical conditions: Anorexia or bulimia, asthma or emphysema, end stage renal disease, hyperparathyroidism, any seizure disorders, cancer, inflammatory bowel diseases, hysterectomy, other ??? please specify. ANSWER: No. 12. What was your maximum height (inches)? 68.5. 13. Do you perform weight bearing exercise regularly? Yes. 14. Do you regularly consume dairy products? Yes. 15. Do you drink caffeinated beverages? Yes. 16. At what age did your period start? 13. 17. Are you premenopausal? No. 18. How many full term pregnancies have you had? Zero. 19. Have you ever missed your period for more than 6 months in a row (not including or menopause)? No. TECHNIQUE: Bone mineral density study was performed using the [employer]. FINDINGS: The results of the study expressed as bone mineral density (BMD) are as follows: Lumbar spine L1 to L4: BMD: 0.936 g/cm2. T-score: -1.0. Z-score: 1.6. Neck Left: BMD: 0.610 g/cm2. T-score: -2.2. Z-score: 0.1. Right: BMD: 0.587 g/cm2. T-score: -2.4. Z-score: -0.1. Total Left: BMD: 0.741 g/cm2. T-score: -1.6. Z-score: 0.3. Right: BMD: 0.749 g/cm2. T-score: -1.6. Z-score: 0.4. IMPRESSION: Osteopenia. *Comparison exams done prior to 10/2019 were performed on different unit, [facility]. COMPARISON: Compared with scan of 09/30/2020, the bone mineral density has increased by 7.3 percent at the spine and decreased by 1.8 percent at the hip. Compared with scan of 11/05/2015, the bone mineral density has increased by 4.4 percent at the spine and increased by 0.3 percent at the hip. ELVIS LICEA M.D. [email or web address] bM/Dictated by: Elvis Licea MD @ 02/08/2024 1:35:00 PM (Electronically Signed)
== END 2024-02-07 09:06 | disposition home or self-care (01) ==
LOC: RAD 09:06
PROVIDERS: PCP Internal Medicine; Visit Provider Internal Medicine
DX: M81.0 Age-related osteoporosis without current pathological fracture (principal); M85.89 Other specified disorders of bone density and structure, multiple sites
CPT/HCPCS: 77080

== ENCOUNTER 2024-12-10 07:50 | Outpatient (CLI) | payer MEDICARE, OTHER, SELFPAY | END 2024-12-10 07:51 | disposition home or self-care (01) | LOC: NFLDREF 12-11 19:47 | PROVIDERS: PCP Internal Medicine; Referring Provider Internal Medicine; Visit Provider Internal Medicine | DX: E78.5 Hyperlipidemia, unspecified (principal); M81.0 Age-related osteoporosis without current pathological fracture; Z13.1 Encounter for screening for diabetes mellitus | CPT/HCPCS: 80061; 82306; 82947 ==